=== PATIENT | female | born 1950 | race Hispanic/Latino ===

== ENCOUNTER → 2021-09-12 | Outpatient (CLI) | payer MEDICARE ==
[~2021-09-12] MED LIST: GADOBENATE DIMEGLUMINE 1 ML IV ONE
[2021-09-12 09:08] LABS: CREATININE, SERUM 0.65 mg/dL (0.57-1.11)
== END ==
LOC: MRI 08:05
PROVIDERS: ATTEND Psychiatry & Neurology Neurology
DX: G50.0 Trigeminal neuralgia (principal); R20.8 Other disturbances of skin sensation
CPT/HCPCS: 36415; 70553; 82565; 84520; A9577